=== PATIENT | male | born 1955 | race Caucasian/White ===

== ENCOUNTER → 2020-04-20 | Outpatient (CLI) | payer MEDICARE, OTHER ==
[~2020-04-20] MED LIST: ALLEGRA ALLERG180 MG PO; AMLODIPINE BESY10 MG PO; ATORVASTATIN CA20 MG PO; BENADRYL25 MG PO; BENICAR20 MG PO; BUPROPION HCL200 MG PO; HYDROCHLOROTH12.5 MG PO; METHOCARBAMOL500 MG PO; PREDNISONE10 M1 PO; ZYLOPRIM 100 M100 MG PO
== END ==
LOC: KOH-I 09:59
DX: M54.5 Low back pain (principal); M25.552 Pain in left hip; M51.36 Other intervertebral disc degeneration, lumbar region
CPT/HCPCS: 72110; 73502

== ENCOUNTER 2021-11-02 10:02 | Inpatient (IN) | payer MEDICARE, MEDICAID ==
[~2021-11-02] VITALS: Ht 167.6 cm; Wt 78.9 kg
[2021-11-02 10:19] LABS: RED BLOOD COUNT 3.84 M/UL (4.20-5.50); WHITE BLOOD COUNT 13.5 K/UL (4.5-11.0)
[2021-11-02 10:59] LABS: BUN/CREATININE RATIO 13 (0-10)
[2021-11-02 15:23] LABS: HEMOGLOBIN 13.9 gm/dl (14.0-17.5)
[2021-11-02 15:25] LABS: RED BLOOD COUNT 4.4 M/UL (4.20-5.50); WHITE BLOOD COUNT 27.6 K/UL (4.5-11.0)
[2021-11-02] MEDS ORDERED: TADALAFIL5 MG PO (15:40)
[2021-11-02] MEDS ORDERED: DICLOFENAC POTA50 MG PO (15:46)
[2021-11-02] MEDS ORDERED: LEVOCETIRIZINE D5 MG PO (15:46)
[2021-11-02] MEDS ORDERED: RISPERIDONE0.25 MG PO (15:47)
[2021-11-02] MEDS ORDERED: COLCHICINE0.6 MG PO (15:47)
[2021-11-02] MEDS ORDERED: LISINOPRIL10 MG PO (15:48)
[2021-11-02 16:32] LABS: BUN/CREATININE RATIO 15 (0-10)
--- NOTE | 2021-11-02 17:50 | NUR ---
1415- TTM STARTED ON PT. PT WITH ART LINE IN R FEMORAL. CENTRAL LINE PLACED IN R EXT JUG. TEMP CENSOR F/C IN PLACE, RECTAL TEMP PROBE IN PLACE. TTM PADS PLACED WITH SIZE SMALL ON LEGS AND SIZE LARGE ON TORSO. DIPRIVAN, FENTANYL INFUSING PER PROTOCOL, LR @ 75CC/HR. INSULIN DRIP INITIATED PER PROTOCOL R/T BG 292. TREATMENT EXPLAINED TO - WILSON - AND FAMILY. AGREE TO TREATMENT.
[2021-11-02 22:02] LABS: HEMOGLOBIN 13.4 gm/dl (14.0-17.5); RED BLOOD COUNT 4.29 M/UL (4.20-5.50)
[2021-11-02 22:03] LABS: WHITE BLOOD COUNT 18.9 K/UL (4.5-11.0)
[2021-11-02 22:27] LABS: BUN/CREATININE RATIO 21 (0-10)
[2021-11-03 06:06] LABS: HEMOGLOBIN 13.5 gm/dl (14.0-17.5); RED BLOOD COUNT 4.3 M/UL (4.20-5.50)
[2021-11-03 06:55] LABS: BUN/CREATININE RATIO 21 (0-10)
[2021-11-03 11:38] LABS: HEMOGLOBIN 12.8 gm/dl (14.0-17.5); RED BLOOD COUNT 4.1 M/UL (4.20-5.50); WHITE BLOOD COUNT 23.6 K/UL (4.5-11.0)
[2021-11-03 12:08] LABS: BUN/CREATININE RATIO 22 (0-10)
[2021-11-03 15:55] LABS: HEMOGLOBIN 12.7 gm/dl (14.0-17.5); RED BLOOD COUNT 4.05 M/UL (4.20-5.50); WHITE BLOOD COUNT 23.2 K/UL (4.5-11.0)
[2021-11-03 16:22] LABS: BUN/CREATININE RATIO 22 (0-10)
[2021-11-03 22:02] LABS: BUN/CREATININE RATIO 21 (0-10)
[2021-11-04 01:44] LABS: BUN/CREATININE RATIO 19 (0-10)
[2021-11-04 04:38] LABS: HEMOGLOBIN 11.9 gm/dl (14.0-17.5); RED BLOOD COUNT 3.78 M/UL (4.20-5.50); WHITE BLOOD COUNT 18.9 K/UL (4.5-11.0)
[2021-11-04 05:42] LABS: BUN/CREATININE RATIO 19 (0-10)
[2021-11-05 08:14] LABS: BUN/CREATININE RATIO 22 (0-10)
--- NOTE | 2021-11-05 19:50 | NUR ---
ASSESSMENT COMPLETED CHARTED. SPOKE WITH FAMILY ( AND DAUGHTER) ALL QUESTIONS AND CONCERNS ADDRESSED. NO ISSUES VERBALIZED AT THIS TIME.
[2021-11-06 03:55] LABS: HEMOGLOBIN 9.8 gm/dl (14.0-17.5); RED BLOOD COUNT 3.17 M/UL (4.20-5.50); WHITE BLOOD COUNT 11.6 K/UL (4.5-11.0)
[2021-11-06 08:23] LABS: BUN/CREATININE RATIO 22 (0-10)
[2021-11-07 04:00] LABS: HEMOGLOBIN 9.7 gm/dl (14.0-17.5); RED BLOOD COUNT 3.13 M/UL (4.20-5.50); WHITE BLOOD COUNT 11.3 K/UL (4.5-11.0)
[2021-11-07 04:29] LABS: BUN/CREATININE RATIO 26 (0-10)
== END 2021-11-08 09:04 | disposition expired | DRG 286 ==
LOC: ER1 10:02 → CDU 10:53 → CCU 10:53
PROVIDERS: Emergency Medicine; Internal Medicine Pulmonary Disease; ADMIT Internal Medicine
PROC: 4A023N7 Measurement of Cardiac Sampling and Pressure, Left Heart, Percutaneous Approach (ICD-10-PCS; principal; 2021-11-02)
PROC: B2151ZZ Fluoroscopy of Left Heart using Low Osmolar Contrast (ICD-10-PCS; 2021-11-02)
PROC: B2111ZZ Fluoroscopy of Multiple Coronary Arteries using Low Osmolar Contrast (ICD-10-PCS; 2021-11-02)
PROC: B24BZZZ Ultrasonography of Heart with Aorta (ICD-10-PCS; 2021-11-02)
PROC: 0BH17EZ Insertion of Endotracheal Airway into Trachea, Via Natural or Artificial Opening (ICD-10-PCS; 2021-11-02)
PROC: 5A1955Z Respiratory Ventilation, Greater than 96 Consecutive Hours (ICD-10-PCS; 2021-11-02)
PROC: 02HV33Z Insertion of Infusion Device into Superior Vena Cava, Percutaneous Approach (ICD-10-PCS; 2021-11-02)
PROC: B548ZZA Ultrasonography of Superior Vena Cava, Guidance (ICD-10-PCS; 2021-11-02)
PROC: 3E043XZ Introduction of Vasopressor into Central Vein, Percutaneous Approach (ICD-10-PCS; 2021-11-02)
PROC: 5A12012 Performance of Cardiac Output, Single, Manual (ICD-10-PCS; 2021-11-02)
DX: I46.9 Cardiac arrest, cause unspecified (principal); Z20.822 Contact with and (suspected) exposure to COVID-19; A41.9 Sepsis, unspecified organism; J96.01 Acute respiratory failure with hypoxia; J69.0 Pneumonitis due to inhalation of food and vomit; G93.6 Cerebral edema; R65.21 Severe sepsis with septic shock; Z51.5 Encounter for palliative care; G93.1 Anoxic brain damage, not elsewhere classified; E87.2 Acidosis; R57.9 Shock, unspecified; E87.1 Hypo-osmolality and hyponatremia; G40.89 Other seizures; I25.10 Atherosclerotic heart disease of native coronary artery without angina pectoris; I12.9 Hypertensive chronic kidney disease with stage 1 through stage 4 chronic kidney disease, or unspecified chronic kidney disease; N18.9 Chronic kidney disease, unspecified; E11.22 Type 2 diabetes mellitus with diabetic chronic kidney disease; E87.6 Hypokalemia; E11.65 Type 2 diabetes mellitus with hyperglycemia; E78.5 Hyperlipidemia, unspecified; M10.9 Gout, unspecified; N52.9 Male erectile dysfunction, unspecified; Z98.890 Other specified postprocedural states; Z90.79 Acquired absence of other genital organ(s); Z80.6 Family history of leukemia; Z84.1 Family history of disorders of kidney and ureter; Z82.0 Family history of epilepsy and other diseases of the nervous system; Z72.89 Other problems related to lifestyle; Z85.46 Personal history of malignant neoplasm of prostate; Z86.010 Personal history of colon polyps
CPT/HCPCS: ECHO; 0240U; 36415; 70450; 71045; 80048; 80053; 80307; 81001; 82009; 82550; 82553; 82803; 82962; 83036; 83605; 83615; 83735; 83880; 84100; 84132; 84478; 84484; 85025; 85384; 85610; 85730; 86140; 86850; 86900; 86901; 87040; 87070; 87077; 87081; 87186; 87205; 93005; 93306; 93970; 94002; 94003; 94640; 94664; 94760; 95816; 99152; 99285; C1769; C1894; C9113; J0171; J0360; J0461; J1205; J1644; J1650; J1940; J1953; J2060; J2250; J2270; J2370; J2543; J2704; J3010; J7040; Q9965; Q9967